=== PATIENT | male | born 1985 | race Caucasian/White ===

== ENCOUNTER 2018-04-25 15:50 | Emergency (ER) | payer OTHER, SELFPAY ==
[2018-04-25 15:52] VITALS: BP 123/79; PULSE 68; RESP 15; TEMP 36.8; O2SAT 98; BMI 28.1
--- NOTE | 2018-04-25 16:01 | RAD_ITS ---
STUDY: X-RAY - LEFT HAND REASON FOR EXAM: Male, 32 years old. Male in first digit TECHNIQUE: 3 view(s) of the hand. COMPARISON: None. FINDINGS: A barbed nail is seen in the thumb with tip projecting over the first interphalangeal joint. I cannot determine the presence or absence of associated fracture on these images. The remaining osseous structures and articular surfaces of the left hand appear within normal limits. RAD/Hand Min 3 Views IMPRESSION: There is a barbed nail within the left arm, with the tip projecting over the first interphalangeal joint. I cannot determine the presence or absence of associated fracture on the submitted images. Repeat films of the left thumb are recommended following foreign body removal. Electronically Signed: Martell Howard MD at 16:19 EST , Service support ,
--- NOTE | 2018-04-25 19:18 | ED.DCSUM_ITS ---
- ER Visit Summary Date of Service: 04/25/18 Chief Complaint: Foreign body left thumb History of Present Illness: The patient is a 32 M is using a pneumatic nail gun and put a nail in his left thumb. Patient is right-hand dominant. States unsure of tetanus status. Physical Examination: Left hand he has a nail across the midportion of his left thumb. Involves the skin and subcu tissue. Clinically does not appear to be in the joint the end of the nail was tenting the skin medially. Distally he has normal cap refill and intact sensation. Negative there is no signs of infection. This is been in place now 3 hours. No gross bony deformity. Otherwise HEENT, neck, heart, lung, abdominal exams are unremarkable. Test Results: X-ray left hand shows a foreign body but it is difficult to ascertain where the location is. Emergency Department Course and Treatment: Digital block left thumb. Once proper anesthetic was obtained and made a small incision with the [address] She has not tolerated procedure well. She was observed for a period of time to make sure that there was not significant bleeding or swelling of the thumb. On repeat exam he is doing well at 1913 and will be discharged. He will be placed on Keflex 4 times a day for 5 days to try to prevent any type of infection. Treatment Plan: Keflex 4 times daily. Ice and elevate. Return if worse. Disposition: Discharge Impression: Acute foreign body left thumb (metallic nail) Digital block by ER and foreign body (nail) removed by ER physician. This note was generated with [employer] dictation software. It may contain incorrect words, spelling, and punctuation that were not noted in review of the chart prior to signing ED Disposition - Plan for ED Patient: Chief Complaint: Foreign Body Referrals: Care Physician,No Primary [Primary Care Provider] -
--- NOTE | 2018-04-25 19:18 | ED.DEP ---
ED Disposition - Plan for ED Patient: Disposition: Home or Assisted Living Chief Complaint: Foreign Body Instructions: ED Foreign Body Soft Tissue Removed Prescriptions: Cephalexin [Keflex] 500 mg PO Q6 #20 cap Referrals: Care Physician,No Primary [Primary Care Provider] - 3-5 Days if not improving Additional Instructions: X-rays signs of infection such as redness, swelling, fever, increasing pain or red streaks. He is seen return to the ER. Ice and elevate. Tylenol and Motrin for pain. Keflex 1 pill 4 times a day until gone.
[2018-04-25] MEDS: Cephalexin 250 MG Capsule 500 MG PO (19:25)
--- NOTE | 2018-04-25 19:46 | ED.RN ---
ADACEL VACCINATION GIVEN IN LEFT DELTOID AT 1920 BY THIS RN. PT TOLERATED WELL, NO REACTIONS NOTED. LOT # [id number], EXP DATE 04/25/2020.
== END 2018-04-25 19:48 | disposition home or self-care (01) ==
PROVIDERS: Emergency Provider Emergency Medicine
DX: S60.352A Superficial foreign body of left thumb, initial encounter (principal); W29.4XXA Contact with nail gun, initial encounter; Y93.9 Activity, unspecified; Y92.9 Unspecified place or not applicable; Z72.0 Tobacco use
CPT/HCPCS: 10120; 73130; 90471; 90715; 99284